=== PATIENT | female | born 1990 | race Caucasian/White ===

== ENCOUNTER → 2016-12-27 | Outpatient (CLI) | payer MEDICAID ==
[~2016-12-27] MED LIST: COLACE-DPS100 MG PO; DERMOPLAST SPRA56 GM PR; FEOSOL-DPS325 MG PO; LAN-O-SOOTHE7 GM TP; MOTRIN-DPS800 MG PO; NIPPLECREAM TP; PRENATAL VIT1 TAB PO; PRILOSEC DPS20 MG PO; TUCKS1 EACH TP; TYLENOL #3 DPS1 TAB PO; TYLENOL EXTRA500 M1 PO
== END | disposition home or self-care (01) ==
LOC: RAD.S 14:00
DX: Z36 Encounter for antenatal screening of mother (principal); Z3A.29 29 weeks gestation of pregnancy

== ENCOUNTER → 2017-02-09 | Outpatient (CLI) | payer MEDICAID | END | disposition home or self-care (01) | LOC: RAD.S 13:00 | DX: Z03.74 Encounter for suspected problem with fetal growth ruled out (principal); Z3A.36 36 weeks gestation of pregnancy ==